=== PATIENT | male | born 1980 | race Caucasian/White ===

== ENCOUNTER 2022-04-22 15:25 | Emergency (ER) | payer OTHER | END 2022-04-22 16:32 | disposition home or self-care (01) | LOC: DL.ED 15:25 | DX: S61.231A Puncture wound without foreign body of left index finger without damage to nail, initial encounter (principal); Z88.1 Allergy status to other antibiotic agents; Z79.899 Other long term (current) drug therapy; W46.1XXA Contact with contaminated hypodermic needle, initial encounter | CPT/HCPCS: 36415; 86803; 87389; 99283 ==

== ENCOUNTER 2023-08-11 20:22 | Emergency (ER) | payer MEDICAID, OTHER ==
[2023-08-11 21:56] LABS: BASOPHILS PERCENT AUTO 0.9 % (0.0-1.0); EOSINOPHILS PERCENT AUTO 1.1 % (1.0-3.0); HEMATOCRIT 47.2 % (40.0-54.0); HEMOGLOBIN 16.2 g/dL (14.0-18.0); LYMPHOCYTES PERCENT AUTO 35.6 % (20.5-50.1); MEAN CORPUSCULAR HEMOGLOBIN 30.3 pg (27.0-34.0); MEAN CORPUSCULAR HGB CONC 34.3 g/dL (33.0-35.0); MEAN CORPUSCULAR VOLUME 88.2 fL (80-100); NEUTROPHILS PERCENT AUTO 52.4 % (42.2-75.2); PLATELET COUNT,PLT 251 10^3/uL (150-450); RED BLOOD CELL COUNT 5.35 10^6/uL (4.6-6.2); WHITE BLOOD CELL COUNT,WBC 9.4 10^3/uL (5.0-10.0)
[2023-08-11 21:59] LABS: APPEARANCE,URINE CLEAR (CLEAR); BILIRUBIN,URINE NEGATIVE (NEGATIVE); COLOR,URINE YELLOW (YELLOW); GLUCOSE,URINE NEGATIVE (NEGATIVE); KETONES,URINE NEGATIVE (NEGATIVE); LEUKOCYTE ESTERASE,URINE NEGATIVE (NEGATIVE); NITRITE,URINE NEGATIVE (NEGATIVE); OCCULT BLOOD,URINE NEGATIVE (NEGATIVE); PH,URINE 6.5 (5.0-9.0); PROTEIN,URINE NEGATIVE (NEGATIVE); UROBILINOGEN,URINE 0.2 mg/dL (0.2-1.0)
[2023-08-11 22:16] LABS: ALANINE AMINOTRANSFERASE,ALT 34 U/L (16-63); ANION GAP 11.7 mEq/L (7-13); ASPARTATE AMNIOTRANSFERASE,AST 20 U/L (15-37); BLOOD UREA NITROGEN,BUN 12 mg/dL (7-18); CALCIUM 8.7 mg/dL (8.5-10.1); CARBON DIOXIDE,CO2 31 mmol/L (21-32); CHLORIDE,CL 101 mmol/L (98-107); GLUCOSE RANDOM 93 mg/dL (70-99); POTASSIUM,K 3.7 mmol/L (3.5-5.1); SODIUM,NA 140 mmol/L (136-145)
[2023-08-11 22:24] LABS: ESTIMATED GFR 70 mL/min (>=60); LIPASE > 250 U/L (16-77)
[2023-08-11] MEDS: Sodium Chloride 0.9% 1,000 ML IV ONE (22:43)
[2023-08-11] MEDS: Iopamidol 612 MG/ML 100 ML Bottle IVPUSH ONE (23:12)
== END 2023-08-12 00:10 | disposition home or self-care (01) ==
LOC: DL.ED 20:22
DX: K85.90 Acute pancreatitis without necrosis or infection, unspecified (principal); Z88.1 Allergy status to other antibiotic agents; Z86.16 Personal history of COVID-19; Z79.899 Other long term (current) drug therapy
CPT/HCPCS: 36415; 74177; 80048; 81003; 83690; 84450; 84460; 85025; 93005; 93010; 96360; 99284; 99284-25; J7030; Q9967

== ENCOUNTER 2023-08-14 20:29 | Emergency (ER) | payer MEDICAID ==
[2023-08-14] MEDS: Ketorolac 30 MG/ML SDV IVPUSH ONE (21:11)
[2023-08-14] MEDS: HYDROmorphone 0.5 MG/0.5 ML Syringe IVPUSH ONE (21:12)
[2023-08-14] MEDS: Ondansetron 4 MG/2 ML SDV IVPUSH ONE (21:56)
== END 2023-08-14 22:35 | disposition home or self-care (01) ==
LOC: DL.ED 20:29
DX: K85.00 Idiopathic acute pancreatitis without necrosis or infection (principal); Z79.899 Other long term (current) drug therapy; Z88.8 Allergy status to other drugs, medicaments and biological substances
CPT/HCPCS: 96374; 96375; 99283; J1170; J1885; J2405